=== PATIENT | male | born 1960 | race Caucasian/White ===

== ENCOUNTER 2021-08-25 07:28 | Day surgery (SDC) | payer OTHER ==
[2021-08-20 09:53] VITALS: BMI 30.2
[2021-08-25] MEDS ORDERED: CARBACHOL 0.01% INTRA-OCULAR 1.5 ML VIAL ONE (08:11)
[2021-08-25] MEDS ORDERED: EPINEPHrine/PF 1 MG/1 ML (1:1,000) AMPULE ONE (08:11)
[2021-08-25] MEDS ORDERED: TETRACAINE 0.5% OPHTH SOLN 2 ML BOTTLE ONE (08:11)
[2021-08-25] MEDS ORDERED: NEO/POLYMYX B SULF/DEXAMETH OPHTHALMIC 5ML BOTTLE ONE (08:11)
[2021-08-25] MEDS ORDERED: LIDOCAINE 1% P/F 10 MG/ML VIAL ONE (08:11)
[2021-08-25] MEDS ORDERED: BSS (NA/CA/MG/K) BALANCED SALT SOLUTION OPHTH SOLN 15 ML BOTTLE ONE (08:11)
[2021-08-25] MEDS: TROPICAMIDE 1% OPHTH SOLN 15 ML BOTTLE ONE ×3 (08:15→08:25)
[2021-08-25] MEDS: CYCLOPENTOLATE 2% OPHTH SOLN 2 ML BOTTLE ONE ×3 (08:15→08:25)
[2021-08-25] MEDS: PHENYLEPHRINE 2.5% OPHTH SOLN 15 ML BOTTLE ONE ×3 (08:15→08:25)
[2021-08-25] MEDS: CIPROFLOXACIN 0.3% EYE DROPS 5 ML BOTTLE ONE ×3 (08:15→08:25)
[2021-08-25] MEDS ORDERED: MIDAZOLAM HCL 2 MG/2 ML SINGLE DOSE VIAL ONE (08:33)
[2021-08-25 09:47] VITALS: PULSE 56; TEMP 98.3
[2021-08-25 10:14] VITALS: BP 114/70
== END 2021-08-25 10:20 | disposition home or self-care (01) ==
LOC: FASU 07:28
PROVIDERS: ATTEND Ophthalmology
PROC: 08RJ3JZ Replacement of Right Lens with Synthetic Substitute, Percutaneous Approach (ICD-10-PCS; principal; 2021-08-25 09:10)
DX: H26.8 Other specified cataract (principal)

== ENCOUNTER 2021-09-16 07:03 | Day surgery (SDC) | payer OTHER ==
[2021-09-14 10:47] VITALS: BMI 30.2
[2021-09-16] MEDS ORDERED: EPINEPHrine/PF 1 MG/1 ML (1:1,000) AMPULE ONE (07:18)
[2021-09-16] MEDS ORDERED: CARBACHOL 0.01% INTRA-OCULAR 1.5 ML VIAL ONE (07:18)
[2021-09-16] MEDS ORDERED: BSS (NA/CA/MG/K) BALANCED SALT SOLUTION OPHTH SOLN 15 ML BOTTLE ONE (07:18)
[2021-09-16] MEDS ORDERED: NEO/POLYMYX B SULF/DEXAMETH OPHTHALMIC 5ML BOTTLE ONE (07:18)
[2021-09-16] MEDS: CYCLOPENTOLATE 2% OPHTH SOLN 2 ML BOTTLE ONE ×3 (07:30→07:40)
[2021-09-16] MEDS: TROPICAMIDE 1% OPHTH SOLN 15 ML BOTTLE ONE ×3 (07:30→07:40)
[2021-09-16] MEDS: CIPROFLOXACIN 0.3% EYE DROPS 5 ML BOTTLE ONE ×3 (07:30→07:40)
[2021-09-16] MEDS: PHENYLEPHRINE 2.5% OPHTH SOLN 15 ML BOTTLE ONE ×3 (07:30→07:40)
[2021-09-16] MEDS ORDERED: MIDAZOLAM HCL 2 MG/2 ML SINGLE DOSE VIAL ONE (08:27)
[2021-09-16 09:44] VITALS: TEMP 97.8
[2021-09-16 10:13] VITALS: BP 110/73; PULSE 64
== END 2021-09-16 10:10 | disposition home or self-care (01) ==
LOC: FASU 07:03
PROVIDERS: ATTEND Ophthalmology
PROC: 08RK3JZ Replacement of Left Lens with Synthetic Substitute, Percutaneous Approach (ICD-10-PCS; principal; 2021-09-16 08:58)
DX: H26.8 Other specified cataract (principal)